=== PATIENT | female | born 1985 | race Caucasian/White ===

== ENCOUNTER 2020-07-04 01:06 | Emergency (ER) | payer BC, MEDICAID ==
[~2020-07-04] VITALS: Ht 165.1 cm; Wt 144.2 kg
[2020-07-04 01:58] LABS: BILIRUBIN,URINE NEGATIVE (NEGATIVE); CLARITY,URINE CLEAR; COLOR,URINE YELLOW; GLUCOSE, URINE (UA) NEGATIVE (NEGATIVE); KETONES,URINE NEGATIVE (NEGATIVE); LEUKOCYTE ESTERASE ,URINE TRACE (NEGATIVE); NITRITE,URINE NEGATIVE (NEGATIVE); PH,URINE 5.5 (5-9); PROTEIN,URINE NEGATIVE (NEGATIVE)
--- NOTE | 2020-07-04 02:07 | ED GI ---
General Chief Complaint: Abdominal/GI Problems Stated Complaint: POSS KIDNEY STONE Source of Information: Patient History of Present Illness Date Seen by Provider: Jul 04, 2020 Time Seen by Provider: 01:41 Initial Comments PT ARRIVES VIA POV WITH FEMALE S.O. ( WHO LATER DECIDED TO ALSO CHECK INTO ER FOR UNRELATED PROBLEM ) C/O BILATERAL LOWER BACK PAIN ON MONDAY NIGHT C/O VERY PAINFUL URINATION, URGENCY, SMALL AMOUNTS SINCE YESTERDAY C/O NAUSEA/VOMITING/DIARRHEA TODAY--UNKNOWN NUMBER OF EPISODES C/O PAIN / CRAMPING IN LOWER ABDOMEN/PELVIC AREA NO FEVER STATES SHE HAS NOT TAKEN ANYTHING FOR SYMPTOMS PT WANTING PAIN MEDICATION AND NAUSEA MEDICATION SOON SHE ARRIVES STATES SHE HAS HAD KIDNEY STONES BEFORE--PASSED THEM ON HER OWN. STATES THIS DOES NOT FEEL THE SAME KIDNEY STONES PT IS INSULIN DEPENDENT DIABETIC--STATES BLOOD SUGAR WAS IN 120'S THIS MORNING, HAS NOT CHECKED IT SINCE THEN JUST MOVED HERE LAST NIGHT WITH HER FEMALE S.O. FROM [place]--STAYING WITH FRIENDS HERE. PCP: [facility]HAS NEW PT APPOINTMENT THIS MONTH Allergies and Home Medications Allergies Coded Allergies: Sulfa (Sulfonamide Antibiotics) (Verified Allergy, Unknown, 07/04/20) ciprofloxacin (Verified Allergy, Unknown, 07/04/20) divalproex sodium (Verified Allergy, Unknown, 07/04/20) dulaglutide (Verified Allergy, Unknown, 07/04/20) elagolix (Verified Allergy, Unknown, 07/04/20) ibuprofen (Verified Allergy, Unknown, 07/04/20) ketorolac (Verified Allergy, Unknown, 07/04/20) progesterone (Verified Allergy, Unknown, 07/04/20) Home Medications Cefdinir 300 Mg Capsule, 300 MG PO BID Prescribed by: NETTE HESTER on 07/04/20408 Ondansetron 8 Mg Tab.rapdis, 8 MG PO Q6H Prescribed by: NETTE HESTER on 07/04/20408 Phenazopyridine HCl 200 Mg Tablet, 1 TAB PO TID Prescribed by: NETTE HESTER on 07/04/20408 Patient Home Medication List Home Medication List Reviewed: Yes Review of Systems Review of Systems Constitutional: no symptoms reported; No chills, No diaphoresis, No dizziness, No fever Respiratory: No Symptoms Reported Cardiovascular: No Symptoms Reported Gastrointestinal: See HPI, Abdominal Pain, Diarrhea, Nausea, Vomiting Past Uayohsz-Olbhrm-Mjruuv Hx Past Med/Social Hx: Reviewed and Corrections made Patient Social History Alcohol Use: Denies Use Drug of Choice: DENIES Smoking Status: Never a Smoker Past Medical History Surgeries: Yes ("TOO MANY TO LIST" PER PT) Respiratory: Yes (COVID-19 INFECTION 11/2019--NO HOSPITALIZATION) Cardiac: Yes High Cholesterol, Hypertension Neurological: Yes Headaches /Migraines Reproductive Disorders: Yes Female Reproductive Disorders: Endometriosis, Ovarian Cyst, Polycystic Ovarian Dis Genitourinary: Yes Bladder Infection, Kidney Stones Gastrointestinal: Yes (GASTROPARESIS; CELIAC DISEASE) Gastroesophageal Reflux Musculoskeletal: Yes Chronic Back Pain Endocrine: Yes (MORBID OBESITY) Diabetes, Insulin dep HEENT: No Cancer: No Psychosocial: Yes Anxiety, PTSD, Bipolar, Depression Integumentary: No Blood Disorders: No Physical Exam Vital Signs Vital Signs - First Documented 07/04/20 01:30 Temp 36.4 Pulse 106 Resp 18 B/P (MAP) 124/77 (93) Pulse Ox 98 O2 Delivery Room Air Capillary Refill : Height/Weight/BMI Height: '" Weight: lbs. oz. kg; BMI Method: General Appearance: no apparent distress, obese (MORBIDLY), other (DOES NOT APPEAR TO BE IN ANY DISCOMFORT OR DISTRESS. 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, no motor/sensory deficits, alert, normal mood/affect, oriented x 3 Skin: normal color, warm/dry Progress/Results/Core Measures Results/Orders Lab Results Laboratory Tests Test 07/04/20 01:30 07/04/20 01:55 07/04/20 02:10 Range/Units Urine Color YELLOW Urine Clarity CLEAR Urine pH 5.5 5-9 Urine Specific [place] >=1.030 1.016-1.022 Urine Protein NEGATIVE NEGATIVE Urine Glucose (UA) NEGATIVE NEGATIVE Urine Ketones NEGATIVE NEGATIVE Urine Nitrite NEGATIVE NEGATIVE Urine Bilirubin NEGATIVE NEGATIVE Urine Urobilinogen 0.2 < = 1.0 MG/DL Urine Leukocyte Esterase TRACE H NEGATIVE Urine RBC (Auto) NEGATIVE NEGATIVE Urine RBC 2-5 H /HPF Urine WBC 5-10 H /HPF Urine Squamous Epithelial Cells 5-10 /HPF Urine Crystals NONE /LPF Urine Bacteria LARGE H /HPF Urine Casts NONE /LPF Urine Mucus LARGE H /LPF Urine Culture Indicated YES Urine Opiates Screen POSITIVE H NEGATIVE Urine Oxycodone Screen POSITIVE H NEGATIVE Urine Methadone Screen NEGATIVE NEGATIVE Urine Propoxyphene Screen NEGATIVE NEGATIVE Urine Barbiturates Screen NEGATIVE NEGATIVE Ur Tricyclic Antidepressants Screen POSITIVE H NEGATIVE Urine Phencyclidine Screen NEGATIVE NEGATIVE Urine Amphetamines Screen NEGATIVE NEGATIVE Urine Methamphetamines Screen NEGATIVE NEGATIVE Urine Benzodiazepines Screen NEGATIVE NEGATIVE Urine Cocaine Screen NEGATIVE NEGATIVE Urine Cannabinoids Screen NEGATIVE NEGATIVE White Blood Count 11.2 H 4.3-11.0 10^3/uL Red Blood Count 5.18 H 3.80-5.11 10^6/uL Hemoglobin 13.6 11.5-16.0 g/dL Hematocrit 42 35-52 % Mean Corpuscular Volume 82 80-99 fL Mean Corpuscular Hemoglobin 26 25-34 pg Mean Corpuscular Hemoglobin Concent 32 32-36 g/dL Red Cell Distribution Width 15.0 H 10.0-14.5 % Platelet Count 305 130-400 10^3/uL Mean Platelet Volume 11.2 9.0-12.2 fL Immature Granulocyte % (Auto) 0 % Neutrophils (%) (Auto) 60 42-75 % Lymphocytes (%) (Auto) 31 12-44 % Monocytes (%) (Auto) 6 0-12 % Eosinophils (%) (Auto) 1 0-10 % Basophils (%) (Auto) 1 0-10 % Neutrophils # (Auto) 6.7 1.8-7.8 10^3/uL Lymphocytes # (Auto) 3.5 1.0-4.0 10^3/uL Monocytes # (Auto) 0.7 0.0-1.0 10^3/uL Eosinophils # (Auto) 0.2 0.0-0.3 10^3/uL Basophils # (Auto) 0.1 0.0-0.1 10^3/uL Immature Granulocyte # (Auto) 0.1 0.0-0.1 10^3/uL Sodium Level 137 135-145 MMOL/L Potassium Level 3.3 L 3.6-5.0 MMOL/L Chloride Level 100 98-107 MMOL/L Carbon Dioxide Level 23 21-32 MMOL/L Anion Gap 14 5-14 MMOL/L Blood Urea Nitrogen 17 7-18 MG/DL Creatinine 0.97 0.60-1.30 MG/DL Estimat Glomerular Filtration Rate > 60 BUN/Creatinine Ratio 18 Glucose Level 163 H 70-105 MG/DL Calcium Level 9.1 8.5-10.1 MG/DL Corrected Calcium 9.3 8.5-10.1 MG/DL Total Bilirubin 0.3 0.1-1.0 MG/DL Aspartate Amino Transf (AST/SGOT) 17 5-34 U/L Alanine Aminotransferase (ALT/SGPT) 44 0-55 U/L Alkaline Phosphatase 151 H 40-136 U/L Total Protein 7.4 6.4-8.2 GM/DL Albumin 3.7 3.2-4.5 GM/DL Coronavirus 2019 ([facility]) Negative Negative My Orders Orders - NETTE HESTER DO Ct Abd/Pelvis Wo(Kidney Stone) (07/04/20 01:50) Urine Bedside (07/04/20 01:50) Cbc With Automated Diff (07/04/20 01:50) Comprehensive Metabolic Panel (07/04/20 01:50) Drug Screen Stat (Urine) (07/04/20 01:50) Ua Culture If Indicated (07/04/20 01:50) Abdomen/Kub 1view (07/04/20 01:50) Covid 19 Inhouse Test (07/04/20 02:07) Urine Culture (07/04/20 01:30) Ondansetron Injection (Zofran Injectio (07/04/20 02:15) Ed Iv/Invasive Line Start (07/04/20 02:12) Ns Iv 1000 Ml (Sodium Chloride 0.9%) (07/04/20 02:15) Ceftriaxone For Iv Use (Rocephin For I (07/04/20 02:30) Medications Given in ED Current Medications Medications Dose Ordered Sig/Christel Route Start Time Stop Time Status Last Admin Dose Admin Ceftriaxone Sodium 1000 mg/ Sterile Water 10 ml @ 200 mls/hr ONCE ONCE IV 07/04/20 02:30 07/04/20 02:32 DC 07/04/20 02:21 200 MLS/HR Ondansetron HCl 8 mg ONCE ONCE IVP 07/04/20 02:15 07/04/20 02:16 DC 07/04/20 02:21 8 MG Vital Signs/I&O 07/04/20 07/04/20 01:30 04:15 Temp 36.4 36.4 Pulse 106 89 Resp 18 17 B/P (MAP) 124/77 (93) 108/75 (93) Pulse Ox 98 98 O2 Delivery Room Air Room Air Progress Progress Note : Progress Note GIVEN IV FLUIDS AND ZOFRAN NO COMPLAINTS FOR REMAINDER OF ER STAY NO VOMITING OR DIARRHEA DURING ER STAY NO URINARY FREQUENCY DURING ER STAY SLEPT ON RETURN FROM CT SCAN Diagnostic Imaging Comments ABDOMEN XRAYS--NO ACUTE PROCESS, CALCIFICATIONS IN PELVIS--PENDING RADIOLOGIST REVIEW CT ABDOMEN/PELVIS--NO ACUTE PROCESS, PER [facility] VIA FAX AT 0406 Reviewed: Reviewed by Me Departure Impression Primary Impression: Urinary tract infection Additional Impression: IDDM (insulin dependent diabetes mellitus) Disposition: HOME, SELF-CARE Condition: Stable Departure-Patient Inst. Referrals: NO,LOCAL PHYSICIAN (PCP/Family) Primary Care Physician Patient Instructions: Diabetes and Infections, Urinary Tract Infection, Adult (DC) Add. Discharge Instructions: CONTINUE YOUR CURRENT MEDICATIONS PRESCRIBED LOTS OF CLEAR LIQUIDS FOLLOW UP WITH DRKiara OF CHOICE IN 3-4 DAYS FOR FURTHER CARE, RETURN TO ER IF WORSE All discharge instructions reviewed with patient and/or family. Voiced understanding. Scripts Ondansetron (Ondansetron Odt) 8 Mg Tab.rapdis 8 MG PO Q6H, #10 TAB Prov: MIR,NETTE K DO 07/04/20 Phenazopyridine HCl (Pyridium) 200 Mg Tablet 1 TAB PO TID, #15 TAB Prov: MIR,NETTE K DO 07/04/20 Cefdinir (Cefdinir) 300 Mg Capsule 300 MG PO BID, #20 CAP Prov: MIR,NETTE K DO 07/04/20 MIR,NETTE K DO Jul 04, 2020 02:07
[2020-07-04 02:12] LABS: BASOPHILS # (AUTO) 0.1 10^3/uL (0.0-0.1); BASOPHILS % (AUTO) 1 % (0-10); EOSINOPHILS # (AUTO) 0.2 10^3/uL (0.0-0.3); EOSINOPHILS % (AUTO) 1 % (0-10); HEMATOCRIT 42 % (35-52); HEMOGLOBIN 13.6 g/dL (11.5-16.0); LYMPHOCYTES # (AUTO) 3.5 10^3/uL (1.0-4.0); LYMPHOCYTES % (AUTO) 31 % (12-44); MEAN CORPUSCULAR HEMOGLOBIN 26 pg (25-34); MEAN CORPUSCULAR HGB CONC 32 g/dL (32-36); MEAN CORPUSCULAR VOLUME 82 fL (80-99); MEAN PLATELET VOLUME 11.2 fL (9.0-12.2); MONOCYTES # (AUTO) 0.7 10^3/uL (0.0-1.0); MONOCYTES % (AUTO) 6 % (0-12); NEUTROPHILS # (AUTO) 6.7 10^3/uL (1.8-7.8); NEUTROPHILS % (AUTO) 60 % (42-75); PLATELET COUNT 305 10^3/uL (130-400); WHITE BLOOD COUNT 11.2 10^3/uL (4.3-11.0)
[2020-07-04 02:13] LABS: BACTERIA,URINE LARGE /HPF
[2020-07-04] MEDS ORDERED: ONDANSETRON 4 MG/2 ML (SDV) Z0FRAN IVP ONE (02:15)
[2020-07-04] MEDS ORDERED: NS IV 1000 ML 1,000 ML IV SCH (02:15)
[2020-07-04 02:23] LABS: AMPHETAMINE SCREEN, URINE NEGATIVE (NEGATIVE); BARBITURATE SCREEN URINE NEGATIVE (NEGATIVE); BENZODIAZEPINES SCREEN URINE NEGATIVE (NEGATIVE); CANNABINOID SCREEN, URINE NEGATIVE (NEGATIVE); COCAINE SCREEN URINE NEGATIVE (NEGATIVE); METHADONE STAT NEGATIVE (NEGATIVE); METHAMPHETAMINE SCREEN URINE S NEGATIVE (NEGATIVE); OPIATE SCREEN URINE POSITIVE (NEGATIVE); OXYCODONE STAT POSITIVE (NEGATIVE); PROPOXYPHENE STAT NEGATIVE (NEGATIVE); TRICYCLIC ANTIDEPRESSANTS SCRE POSITIVE (NEGATIVE)
[2020-07-04 02:30] LABS: ALANINE AMINOTRANSFERASE 44 U/L (0-55); ALBUMIN 3.7 GM/DL (3.2-4.5); ALKALINE PHOSPHATASE 151 U/L (40-136); BILIRUBIN,TOTAL 0.3 MG/DL (0.1-1.0); BUN/CREATININE RATIO 18; CALCIUM 9.1 MG/DL (8.5-10.1); CARBON DIOXIDE 23 MMOL/L (21-32); CHLORIDE 100 MMOL/L (98-107); CREATININE SERUM 0.97 MG/DL (0.60-1.30); GFR ESTIMATED > 60; GLUCOSE 163 MG/DL (70-105); POTASSIUM 3.3 MMOL/L (3.6-5.0); SODIUM 137 MMOL/L (135-145); TOTAL PROTEIN 7.4 GM/DL (6.4-8.2)
[2020-07-04] MEDS ORDERED: cefTRIAXone FOR IV USE 1,000 MG in WATER (STERILE) FOR INJECTION 10 ML IV ONE (02:30)
[2020-07-04] MEDS ORDERED: PHEN-640 PO (04:09)
[2020-07-04] MEDS ORDERED: CEFD300C3 PO (04:09)
[2020-07-04] MEDS ORDERED: ONDA8TAB13 PO (04:09)
[2020-07-04 04:15] VITALS: BP 108/75
--- NOTE | 2020-07-04 07:05 | Diagnostic Imaging Report ---
EXAMINATION: CT Abdomen Pelvis without contrast. TECHNIQUE: Multiple contiguous axial images were obtained through the abdomen and pelvis without the use of intravenous contrast. All CT scans use one or more of the following dose optimizing techniques: automated exposure control, MA and/or KvP adjustment based on a patient size and exam type, or iterative reconstruction. HISTORY: Flank pain COMPARISON: None available. FINDINGS: Limited views of the lower thorax are unremarkable. The liver is normal without focal lesion. There is no biliary ductal dilation. The gallbladder is surgically absent. Pancreas is normal. Spleen is normal. Adrenal glands are normal. The kidneys are normal. There is no hydronephrosis. Urinary bladder is normal. There are several phleboliths in the pelvis including one immediately adjacent to the left ureter. No ureteral stones are seen. Visualized bowel is normal in caliber without obstruction or inflammation. No free fluid or air. No abdominal or pelvic lymphadenopathy. Aorta is normal in caliber without aneurysm. There are no suspicious osseus lesions. IMPRESSION: 1. No acute abnormality in the abdomen or pelvis. There is no significant disagreement with the preliminary report. Dictated by: Dictated on workstation # [id number]
--- NOTE | 2020-07-04 07:47 | Diagnostic Imaging Report ---
HISTORY: Abdominal pain COMPARISON: CT from the same day FINDINGS: Frontal view of the abdomen demonstrates no bowel distention or large collection of free air. Cholecystectomy clips are noted. There is a small amount of stool in the right colon. Phleboliths are seen at the pelvis. IMPRESSION: 1. No bowel obstruction or large collection of free air. Dictated by: Dictated on workstation # [id number]
== END 2020-07-04 04:15 | disposition home or self-care (01) ==
LOC: ER 01:11
DX: N39.0 Urinary tract infection, site not specified (principal); E11.9 Type 2 diabetes mellitus without complications; R60.9 Edema, unspecified; I10 Essential (primary) hypertension; E66.01 Morbid (severe) obesity due to excess calories; Z79.4 Long term (current) use of insulin; Z20.822 Contact with and (suspected) exposure to COVID-19; Z88.1 Allergy status to other antibiotic agents; Z88.2 Allergy status to sulfonamides; Z88.6 Allergy status to analgesic agent; Z88.8 Allergy status to other drugs, medicaments and biological substances
CPT/HCPCS: 74018; 74176; 80053; 80306; 81000; 84703; 85025; 87077; 87088; 87186; 99284; U0002; 36415; 87635

== ENCOUNTER 2020-07-11 11:54 | Emergency (ER) | payer MEDICAID ==
[~2020-07-11] VITALS: Ht 165 cm; Wt 144.8 kg
[~2020-07-11 11:54] MED LIST: CEFD300C3 PO; ONDA8TAB13 PO; PHEN-640 PO
[2020-07-11] MEDS ORDERED: MILN12.5 PO (12:39)
[2020-07-11] MEDS ORDERED: AMT10T PO (12:39)
[2020-07-11] MEDS ORDERED: RIME75TA PO (12:39)
[2020-07-11] MEDS ORDERED: ESCI5TAB PO (12:39)
[2020-07-11] MEDS ORDERED: PREG25CA PO (12:39)
[2020-07-11] MEDS ORDERED: BREX0.25 PO (12:39)
[2020-07-11] MEDS ORDERED: DULO20CA PO (12:39)
[2020-07-11] MEDS ORDERED: INSU100V16 SQ (12:39)
[2020-07-11] MEDS ORDERED: ATOR10TA66 PO (12:39)
[2020-07-11] MEDS ORDERED: HYDR12.56 PO (12:39)
[2020-07-11] MEDS ORDERED: GLIP5TAB13 PO (12:39)
[2020-07-11] MEDS ORDERED: INSU100V5 SQ (12:39)
[2020-07-11] MEDS ORDERED: LISI10TA25 PO (12:39)
[2020-07-11] MEDS ORDERED: TIZA4CAP8 PO (12:39)
[2020-07-11] MEDS ORDERED: OXYC1TAB12 PO (12:39)
[2020-07-11] MEDS ORDERED: CLON0.5T PO (12:39)
[2020-07-11] MEDS ORDERED: SUMA6KIT SQ (12:39)
[2020-07-11] MEDS ORDERED: TPR25T PO (12:39)
[2020-07-11 12:48] LABS: BILIRUBIN,URINE NEGATIVE (NEGATIVE); CLARITY,URINE CLEAR; COLOR,URINE YELLOW; GLUCOSE, URINE (UA) NEGATIVE (NEGATIVE); KETONES,URINE NEGATIVE (NEGATIVE); LEUKOCYTE ESTERASE ,URINE NEGATIVE (NEGATIVE); NITRITE,URINE NEGATIVE (NEGATIVE); PROTEIN,URINE NEGATIVE (NEGATIVE)
--- NOTE | 2020-07-11 12:55 | ED Abdominal Pain ---
General Chief Complaint: Abdominal/GI Problems Stated Complaint: R SIDE ABD PAIN Nursing Triage Note: PATIENT AMBULATORY TO FT3 WITH FRIEND THAT HAD BEEN SEEN EARLIER IN ER. PATIENT IS C/O RIGHT LOWER QUADRANT ABDOMINAL PAIN SINCE YESTERDAY AND ALSO MIGRAINE HEADACHES X 2 DAYS. PT STATES SHE JUST MOVED FROM [place]. Sepsis Screen: No Definite Risk Source of Information: Patient Exam Limitations: No Limitations History of Present Illness Date Seen by Provider: Jul 11, 2020 Time Seen by Provider: 12:53 Initial Comments To ER with significant other with reports of right lower quadrant abdominal pain for a few days. She states that she has endometriosis on her appendix and she can never tell if this is appendicitis or endometriosis. Her significant other was here earlier and was discharged, patient then decided to check in and be seen. She states that Toradol causes her to have seizures, NSAIDs cause her to have bleeding ulcers. She has Percocet on her home medication list as well as Klonopin in addition to multiple others. Timing/Duration: 2-3 Days Severity/Quality: Moderate Location: RLQ Radiation: No Radiation Activities at Onset: None Associated Symptoms: Nausea/Vomiting Allergies and Home Medications Allergies Coded Allergies: Sulfa (Sulfonamide Antibiotics) (Verified Allergy, Unknown, 07/04/20) ciprofloxacin (Verified Allergy, Unknown, 07/04/20) divalproex sodium (Verified Allergy, Unknown, 07/04/20) dulaglutide (Verified Allergy, Unknown, 07/04/20) elagolix (Verified Allergy, Unknown, 07/04/20) ibuprofen (Verified Allergy, Unknown, 07/04/20) ketorolac (Verified Allergy, Unknown, 07/04/20) progesterone (Verified Allergy, Unknown, 07/04/20) Home Medications Atorvastatin Calcium 10 Mg Tablet, 10 MG PO HS, (Reported) Cefdinir 300 Mg Capsule, 300 MG PO BID Prescribed by: NETTE HESTER on 07/04/20408 Insulin Aspart 100 Unit/1 Ml Susp, 15 UNIT SQ AC, (Reported) Insulin Determir 1,000 Units/10 Ml Soln, 50 UNITS SQ HS, (Reported) Lisinopril 10 Mg Tablet, 10 MG PO DAILY, (Reported) Ondansetron 8 Mg Tab.rapdis, 8 MG PO Q6H Prescribed by: NETTE HESTER on 07/04/20408 Oxycodone HCl/Acetaminophen 1 Each Tablet, 1 TAB PO Q8H PRN for PAIN-MODERATE, (Reported) Phenazopyridine HCl 200 Mg Tablet, 1 TAB PO TID Prescribed by: NETTE HESTER on 07/04/20 0409 Promethazine HCl 25 Mg Tablet, 25 MG PO TID PRN for NAUSEA/VOMITING Prescribed by: GEOVANI DURAN on 07/11/20 1333 Patient Home Medication List Home Medication List Reviewed: Yes Review of Systems Review of Systems Constitutional: see HPI EENTM: No Symptoms Reported Respiratory: No Symptoms Reported Cardiovascular: No Symptoms Reported Gastrointestinal: See HPI, Abdominal Pain, Nausea Genitourinary: No Symptoms Reported Musculoskeletal: no symptoms reported Skin: no symptoms reported Psychiatric/Neurological: No Symptoms Reported Endocrine: No Symptoms Reported Hematologic/Lymphatic: No Symptoms Reported Past Slshzqu-Elsynm-Irvcve Hx Patient Social History Alcohol Use: Denies Use Drug of Choice: DENIES Smoking Status: Never a Smoker 2nd Hand Smoke Exposure: No Recent Infectious Disease Expo: No Recent Hopitalizations: No Immunizations Up To Date Date of Influenza Vaccine: Jan 21, 2020 Seasonal Allergies Seasonal Allergies: No Past Medical History Surgeries: Yes (RECONSTRUCTION ON L RING FINGER, CARPAL TUNNEL, BEGNIGN TUMOR R LEG ) Gallbladder, Hysterectomy, Orthopedic, Tonsillectomy Respiratory: Yes (COVID-19 INFECTION 11/2019--NO HOSPITALIZATION) Cardiac: Yes High Cholesterol, Hypertension Neurological: Yes Headaches /Migraines Reproductive Disorders: Yes Female Reproductive Disorders: Endometriosis, Ovarian Cyst, Polycystic 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 oz. kg; 53.00 BMI Method: General Appearance: WD/WN, no apparent distress, obese HEENT: PERRL/EOMI, normal ENT inspection Neck: non-tender, full range of motion Respiratory: normal breath sounds, no respiratory distress, no accessory muscle use Cardiovascular: regular rate, rhythm, no murmur Gastrointestinal: normal bowel sounds, soft, tenderness Neurologic/Psychiatric: alert, normal mood/affect, oriented x 3 Skin: normal color, warm/dry Progress/Results/Core Measures Results/Orders Lab Results Laboratory Tests Test 07/11/20 12:40 07/11/20 12:52 Range/Units Urine Color YELLOW Urine Clarity CLEAR Urine pH 7.0 5-9 Urine Specific [place] 1.020 1.016-1.022 Urine Protein NEGATIVE NEGATIVE Urine Glucose (UA) NEGATIVE NEGATIVE Urine Ketones NEGATIVE NEGATIVE Urine Nitrite NEGATIVE NEGATIVE Urine Bilirubin NEGATIVE NEGATIVE Urine Urobilinogen 0.2 < = 1.0 MG/DL Urine Leukocyte Esterase NEGATIVE NEGATIVE Urine RBC (Auto) NEGATIVE NEGATIVE Urine RBC RARE /HPF Urine WBC 0-2 /HPF Urine Squamous Epithelial Cells 25-50 H /HPF Urine Crystals NONE /LPF Urine Bacteria FEW H /HPF Urine Casts NONE /LPF Urine Mucus NEGATIVE /LPF Urine Culture Indicated YES Urine Opiates Screen NEGATIVE NEGATIVE Urine Oxycodone Screen POSITIVE H NEGATIVE Urine Methadone Screen NEGATIVE NEGATIVE Urine Propoxyphene Screen NEGATIVE NEGATIVE Urine Barbiturates Screen NEGATIVE NEGATIVE Ur Tricyclic Antidepressants Screen POSITIVE H NEGATIVE Urine Phencyclidine Screen NEGATIVE NEGATIVE Urine Amphetamines Screen NEGATIVE NEGATIVE Urine Methamphetamines Screen NEGATIVE NEGATIVE Urine Benzodiazepines Screen NEGATIVE NEGATIVE Urine Cocaine Screen NEGATIVE NEGATIVE Urine Cannabinoids Screen NEGATIVE NEGATIVE White Blood Count 10.7 4.3-11.0 10^3/uL Red Blood Count 5.57 H 3.80-5.11 10^6/uL Hemoglobin 14.7 11.5-16.0 g/dL Hematocrit 46 35-52 % Mean Corpuscular Volume 82 80-99 fL Mean Corpuscular Hemoglobin 26 25-34 pg Mean Corpuscular Hemoglobin Concent 32 32-36 g/dL Red Cell Distribution Width 14.9 H 10.0-14.5 % Platelet Count 277 130-400 10^3/uL Mean Platelet Volume 11.3 9.0-12.2 fL Immature Granulocyte % (Auto) 0 % Neutrophils (%) (Auto) 76 H 42-75 % Lymphocytes (%) (Auto) 18 12-44 % Monocytes (%) (Auto) 4 0-12 % Eosinophils (%) (Auto) 1 0-10 % Basophils (%) (Auto) 1 0-10 % Neutrophils # (Auto) 8.1 H 1.8-7.8 10^3/uL Lymphocytes # (Auto) 1.9 1.0-4.0 10^3/uL Monocytes # (Auto) 0.4 0.0-1.0 10^3/uL Eosinophils # (Auto) 0.2 0.0-0.3 10^3/uL Basophils # (Auto) 0.1 0.0-0.1 10^3/uL Immature Granulocyte # (Auto) 0.0 0.0-0.1 10^3/uL Sodium Level 140 135-145 MMOL/L Potassium Level 3.4 L 3.6-5.0 MMOL/L Chloride Level 99 98-107 MMOL/L Carbon Dioxide Level 26 21-32 MMOL/L Anion Gap 15 H 5-14 MMOL/L Blood Urea Nitrogen 9 7-18 MG/DL Creatinine 0.82 0.60-1.30 MG/DL Estimat Glomerular Filtration Rate > 60 BUN/Creatinine Ratio 11 Glucose Level 145 H 70-105 MG/DL Calcium Level 9.4 8.5-10.1 MG/DL Corrected Calcium 9.6 8.5-10.1 MG/DL Total Bilirubin 0.4 0.1-1.0 MG/DL Aspartate Amino Transf (AST/SGOT) 26 5-34 U/L Alanine Aminotransferase (ALT/SGPT) 33 0-55 U/L Alkaline Phosphatase 140 H 40-136 U/L C-Reactive Protein High Sensitivity 3.29 H 0.00-0.50 MG/DL Total Protein 7.7 6.4-8.2 GM/DL Albumin 3.8 3.2-4.5 GM/DL My Orders Orders - GEOVANI DURAN APRN Ua Culture If Indicated (07/11/20 12:30) Drug Screen Stat (Urine) (07/11/20 12:30) Hs C Reactive Protein (07/11/20 12:30) Cbc With Automated Diff (07/11/20 12:30) Comprehensive Metabolic Panel (07/11/20 12:30) Acetaminophen Tablet (Tylenol Tablet) (07/11/20 13:00) Promethazine Tablet (Phenergan Tablet) (07/11/20 13:00) Urine Culture (07/11/20 12:40) Ct Abdomen/Pelvis Wo (07/11/20 13:27) Medications Given in ED Current Medications Medications Dose Ordered Sig/Christel Route Start Time Stop Time Status Last Admin Dose Admin Acetaminophen 1,000 mg ONCE ONCE PO 07/11/20 13:00 07/11/20 13:01 DC 07/11/20 13:00 1,000 MG Promethazine HCl 25 mg ONCE ONCE PO 07/11/20 13:00 07/11/20 13:01 DC 07/11/20 13:00 25 MG Vital Signs/I&O 07/11/20 12:20 Temp 35.9 Pulse 109 Resp 18 B/P (MAP) 137/86 (103) Pulse Ox 100 O2 Delivery Room Air Blood Pressure Mean: 103 Diagnostic Imaging Diagonstic Imaging: CT Comments NAME: YANDY BULL MED REC#: [id number] PT STATUS: REG ER : 1985 PHYSICIAN: GEOVANI DURAN APRN ADMIT DATE: 07/11/20/ER Draft Date of Exam:07/11/20 CT ABDOMEN/PELVIS WO PROCEDURE: CT abdomen and pelvis without contrast. TECHNIQUE: Multiple contiguous axial images were obtained through the abdomen and pelvis without the use of intravenous contrast. Auto Exposure Controls were utilized during the CT exam to meet ALARA standards for radiation dose reduction. INDICATION: Right lower quadrant pain. Comparison made with prior examination 07/04/2020 FINDINGS: The heart size is normal. The lung bases are clear. Liver is normal in size without focal lesions. Gallbladder is surgically absent. There is no biliary ductal dilatation. Spleen is normal. Pancreas and adrenal glands are unremarkable. Kidneys are normal in appearance. Aorta is nonaneurysmal. Bowel gas pattern is nonspecific. There is no CT evidence of appendicitis. There is no free air. There is no ascites. There are no focal inflammatory changes. Bladder is normal. There is no pelvic mass, adenopathy or free fluid. There is a small fat-containing umbilical hernia. There are mild degenerative changes in the spine. IMPRESSION: Small fat-containing umbilical hernia. No other acute abnormality in the abdomen or pelvis. Dictated on workstation # [id number] Dict: 07/11/20 1344 Trans: 07/11/20 1349 [id number] Interpreted by: CATALINA HERNANDEZ MD Electronically signed by: Departure Impression Primary Impression: Nonspecific abdominal pain Disposition: HOME, SELF-CARE Condition: Stable Departure-Patient Inst. Decision time for Depature: 13:32 Referrals: NO,LOCAL PHYSICIAN (PCP/Family) Primary Care Physician Patient Instructions: No Instuctions Given Scripts Promethazine HCl (Promethazine Tablet) 25 Mg Tablet 25 MG PO TID PRN for NAUSEA/VOMITING, #10 TAB Prov: GEOVANI DURAN APRN 07/11/20 GEOVANI DURAN APRN Jul 11, 2020 12:55
[2020-07-11 12:58] LABS: BACTERIA,URINE FEW /HPF; RBC,URINE RARE /HPF; SQUAMOUS EPITHELIAL CELL,UR 25-50 /HPF; WBC,URINE 0-2 /HPF
[2020-07-11 12:58] LABS: BASOPHILS # (AUTO) 0.1 10^3/uL (0.0-0.1); BASOPHILS % (AUTO) 1 % (0-10); EOSINOPHILS # (AUTO) 0.2 10^3/uL (0.0-0.3); EOSINOPHILS % (AUTO) 1 % (0-10); HEMATOCRIT 46 % (35-52); HEMOGLOBIN 14.7 g/dL (11.5-16.0); LYMPHOCYTES # (AUTO) 1.9 10^3/uL (1.0-4.0); LYMPHOCYTES % (AUTO) 18 % (12-44); MEAN CORPUSCULAR HEMOGLOBIN 26 pg (25-34); MEAN CORPUSCULAR HGB CONC 32 g/dL (32-36); MEAN CORPUSCULAR VOLUME 82 fL (80-99); MEAN PLATELET VOLUME 11.3 fL (9.0-12.2); MONOCYTES # (AUTO) 0.4 10^3/uL (0.0-1.0); MONOCYTES % (AUTO) 4 % (0-12); NEUTROPHILS # (AUTO) 8.1 10^3/uL (1.8-7.8); NEUTROPHILS % (AUTO) 76 % (42-75); PLATELET COUNT 277 10^3/uL (130-400); WHITE BLOOD COUNT 10.7 10^3/uL (4.3-11.0)
[2020-07-11 13:00] LABS: AMPHETAMINE SCREEN, URINE NEGATIVE (NEGATIVE); BARBITURATE SCREEN URINE NEGATIVE (NEGATIVE); BENZODIAZEPINES SCREEN URINE NEGATIVE (NEGATIVE); CANNABINOID SCREEN, URINE NEGATIVE (NEGATIVE); COCAINE SCREEN URINE NEGATIVE (NEGATIVE); METHADONE STAT NEGATIVE (NEGATIVE); METHAMPHETAMINE SCREEN URINE S NEGATIVE (NEGATIVE); OPIATE SCREEN URINE NEGATIVE (NEGATIVE); OXYCODONE STAT POSITIVE (NEGATIVE); PROPOXYPHENE STAT NEGATIVE (NEGATIVE); TRICYCLIC ANTIDEPRESSANTS SCRE POSITIVE (NEGATIVE)
[2020-07-11] MEDS ORDERED: ACETAMINOPHEN 500 MG TAB (TYLENOL) PO ONE (13:00)
[2020-07-11] MEDS ORDERED: PROMETHAZINE 25 MG (PHENERGAN) TAB PO ONE (13:00)
[2020-07-11 13:18] LABS: ALBUMIN 3.8 GM/DL (3.2-4.5); CHLORIDE 99 MMOL/L (98-107); POTASSIUM 3.4 MMOL/L (3.6-5.0); SODIUM 140 MMOL/L (135-145)
[2020-07-11 13:20] LABS: CALCIUM 9.4 MG/DL (8.5-10.1)
[2020-07-11 13:21] LABS: GLUCOSE 145 MG/DL (70-105); TOTAL PROTEIN 7.7 GM/DL (6.4-8.2)
[2020-07-11 13:22] LABS: CARBON DIOXIDE 26 MMOL/L (21-32)
[2020-07-11 13:23] LABS: BILIRUBIN,TOTAL 0.4 MG/DL (0.1-1.0)
[2020-07-11 13:24] LABS: ALKALINE PHOSPHATASE 140 U/L (40-136)
[2020-07-11 13:25] LABS: CREATININE SERUM 0.82 MG/DL (0.60-1.30); GFR ESTIMATED > 60
[2020-07-11 13:26] LABS: BUN/CREATININE RATIO 11
[2020-07-11 13:27] LABS: ALANINE AMINOTRANSFERASE 33 U/L (0-55)
[2020-07-11] MEDS ORDERED: PROM25TA14 PO (13:33)
--- NOTE | 2020-07-11 13:49 | Diagnostic Imaging Report ---
PROCEDURE: CT abdomen and pelvis without contrast. TECHNIQUE: Multiple contiguous axial images were obtained through the abdomen and pelvis without the use of intravenous contrast. Auto Exposure Controls were utilized during the CT exam to meet ALARA standards for radiation dose reduction. INDICATION: Right lower quadrant pain. Comparison made with prior examination 07/04/2020 FINDINGS: The heart size is normal. The lung bases are clear. Liver is normal in size without focal lesions. Gallbladder is surgically absent. There is no biliary ductal dilatation. Spleen is normal. Pancreas and adrenal glands are unremarkable. Kidneys are normal in appearance. Aorta is nonaneurysmal. Bowel gas pattern is nonspecific. There is no CT evidence of appendicitis. There is no free air. There is no ascites. There are no focal inflammatory changes. Bladder is normal. There is no pelvic mass, adenopathy or free fluid. There is a small fat-containing umbilical hernia. There are mild degenerative changes in the spine. IMPRESSION: Small fat-containing umbilical hernia. No other acute abnormality in the abdomen or pelvis. Dictated by: Dictated on workstation # [id number]
[2020-07-11 14:04] VITALS: BP 120/72
== END 2020-07-11 14:07 | disposition home or self-care (01) ==
LOC: EDUNIT# 11:54 → ER 11:54
DX: R10.31 Right lower quadrant pain (principal); I10 Essential (primary) hypertension; E11.9 Type 2 diabetes mellitus without complications; E78.00 Pure hypercholesterolemia, unspecified; G89.29 Other chronic pain; M54.9 Dorsalgia, unspecified; G43.909 Migraine, unspecified, not intractable, without status migrainosus; Z88.2 Allergy status to sulfonamides; Z88.1 Allergy status to other antibiotic agents; Z88.8 Allergy status to other drugs, medicaments and biological substances; Z88.6 Allergy status to analgesic agent; Z79.4 Long term (current) use of insulin; Z86.16 Personal history of COVID-19; Z87.442 Personal history of urinary calculi; Z79.891 Long term (current) use of opiate analgesic
CPT/HCPCS: 36415; 74176; 80053; 80306; 81000; 85025; 86141; 87088

== ENCOUNTER 2020-07-19 21:00 | Emergency (ER) | payer MEDICAID ==
[~2020-07-19] VITALS: Ht 165 cm; Wt 149.0 kg
[~2020-07-19 21:00] MED LIST changes: +AMT10T PO; +ATOR10TA66 PO; +BREX0.25 PO; +CLON0.5T PO; +DULO20CA PO; +ESCI5TAB PO; +GLIP5TAB13 PO; +HYDR12.56 PO; +INSU100V16 SQ; +INSU100V5 SQ; +LISI10TA25 PO; +MILN12.5 PO; +OXYC1TAB12 PO; +PREG25CA PO; +PROM25TA14 PO; +RIME75TA PO; +SUMA6KIT SQ; +TIZA4CAP8 PO; +TPR25T PO
--- NOTE | 2020-07-19 22:03 | ED Headache ---
General Chief Complaint: Head/Cervical Problems Stated Complaint: SEIZURES Nursing Triage Note: Pt here with what she describes as a migraine and seizure activity x 2 today; pt states she takes Topamax for her seizures. Nursing Sepsis Screen: No Definite Risk History of Present Illness Date Seen by Provider: Jul 19, 2020 Time Seen by Provider: 21:45 Initial Comments Patient is a 35-year-old who presents to the emergency department tonight with a chief complaint of "seizures". Patient states that she has a history of the seizures when she has migraines. Patient states that she is had a migraine all day long and states that normally she has these in her sleep. She states that she takes Topamax for her seizures. She does not currently have a doctor she [place] and has an appointment with [facility] on 28 July. Patient's been out of her medications for diabetes since 03 July. She is normally on an oral hypoglycemic agent as well as insulin. Patient denies any recent illnesses. States this migraine is typical for her. She does have photosensitivity. Descriptor by the family member at the bedside is that the patient jerks in her hands. She was noted to have a se izure where her head went back on her eyelids fluttered in the waiting room and this was also witnessed by her nurse, Chanel. Lasted only moments. No postictal state is reported. Patient states that she typically has seizures about twice a month with her migraines. All other review of systems reviewed and negative except as stated above. Timing/Duration: 24 hours Severity/Quality: severe ("9") Location: global Prior Headaches/Recent Trauma: frequent headaches Modifying Factors: worse with exposure to light Allergies and Home Medications Allergies Coded Allergies: Sulfa (Sulfonamide Antibiotics) (Verified Allergy, Unknown, 07/04/20) ciprofloxacin (Verified Allergy, Unknown, 07/04/20) divalproex sodium (Verified Allergy, Unknown, 07/04/20) dulaglutide (Verified Allergy, Unknown, 07/04/20) elagolix (Verified Allergy, Unknown, 07/04/20) ibuprofen (Verified Allergy, Unknown, 07/04/20) ketorolac (Verified Allergy, Unknown, 07/04/20) progesterone (Verified Allergy, Unknown, 07/04/20) Home Medications Atorvastatin Calcium 10 Mg Tablet, 10 MG PO HS, (Reported) Cefdinir 300 Mg Capsule, 300 MG PO BID Prescribed by: NETTE HESTER on 07/04/20 040 Insulin Aspart 100 Unit/1 Ml Susp, 15 UNIT SQ AC, (Reported) Insulin Determir 1,000 Units/10 Ml Soln, 50 UNITS SQ HS, (Reported) Lisinopril 10 Mg Tablet, 10 MG PO DAILY, (Reported) Ondansetron 8 Mg Tab.rapdis, 8 MG PO Q6H Prescribed by: NETTE HESTER on 07/04/20 040 Oxycodone HCl/Acetaminophen 1 Each Tablet, 1 TAB PO Q8H PRN for PAIN-MODERATE, (Reported) Phenazopyridine HCl 200 Mg Tablet, 1 TAB PO TID Prescribed by: NETTE HESTER on 07/04/20408 Promethazine HCl 25 Mg Tablet, 25 MG PO TID PRN for NAUSEA/VOMITING Prescribed by: GEOVANI DURAN on 07/11/20 1333 Patient Home Medication List Home Medication List Reviewed: Yes Review of Systems Review of Systems Constitutional: see HPI Eyes: Photophobia Ears, Nose, Mouth, Throat: no symptoms reported Respiratory: no symptoms reported Cardiovascular: no symptoms reported Gastrointestinal: no symptoms reported Genitourinary: no symptoms reported Musculoskeletal: no symptoms reported Skin: no symptoms reported Psychiatric/Neurological: Seizure All Other Systems Reviewed Negative Unless Noted: Yes Past Ywrzcza-Hevejv-Tkkxec Hx Patient Social History Alcohol Use: Occasionally Uses Drug of Choice: DENIES Smoking Status: Former Smoker 2nd Hand Smoke Exposure: No Recent Infectious Disease Expo: No Recent Hopitalizations: No Immunizations Up To Date Date of Influenza Vaccine: Jan 21, 2020 Seasonal Allergies Seasonal Allergies: No Past Medical History Surgeries: Yes (RECONSTRUCTION ON L RING FINGER, CARPAL TUNNEL, BEGNIGN TUMOR R LEG ) Gallbladder, Hysterectomy, Orthopedic, Tonsillectomy Respiratory: Yes (COVID-19 INFECTION 11/2019--NO HOSPITALIZATION) Cardiac: Yes High Cholesterol, Hypertension Neurological: Yes Headaches /Migraines Reproductive Disorders: Yes Female Reproductive Disorders: Endometriosis, Ovarian Cyst, Polycystic 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 oz. kg; 54.00 BMI Method: General Appearance: WD/WN, no apparent distress HEENT: PERRL/EOMI, normal ENT inspection Neck: full range of motion Cardiovascular: regular rate, rhythm Respiratory: normal breath sounds, no respiratory distress, no accessory muscle use Gastrointestinal: non tender, soft Back: normal inspection Extremities: normal inspection, no pedal edema, no calf tenderness Psychiatric: alert, oriented x 3 Crainal Nerves: normal hearing, normal speech, PERRL; No abnormal eye position, No abnormal speech Motor/Sensory: no motor deficit, no sensory deficit Skin: normal color, warm/dry Progress/Results/Core Measures Results/Orders Lab Results Laboratory Tests Test 07/19/20 22:40 Range/Units Glucometer 271 H 70-110 MG/DL My Orders Orders - CARMELITA RO MD Accucheck Stat ONCE (07/19/20 22:18) Diphenhydramine Injection (Benadryl Inje (07/19/20 22:30) Promethazine Injection (Phenergan Injec (07/19/20 22:30) Sumatriptan Injection (Imitrex Injection (07/19/20 22:30) Medications Given in ED Current Medications Medications Dose Ordered Sig/Christel Route Start Time Stop Time Status Last Admin Dose Admin Diphenhydramine HCl 50 mg ONCE ONCE IVP 07/19/20 22:30 07/19/20 22:31 DC 07/19/20 22:27 50 MG Promethazine HCl 25 mg ONCE ONCE IVP 07/19/20 22:30 07/19/20 22:31 DC 07/19/20 22:27 25 MG Sumatriptan Succinate 6 mg ONCE ONCE SQ 07/19/20 22:30 07/19/20 22:31 DC 07/19/20 22:34 6 MG Vital Signs/I&O 07/19/20 21:14 Temp 36.4 Pulse 105 Resp 18 B/P (MAP) 124/67 (86) Pulse Ox 98 O2 Delivery Room Air Blood Pressure Mean: 86 Progress Progress Note : Time: 23:23 Progress Note re-evalluated, feeling improved. Checked both her ears, they are clear. VS are stable. Will send her home to continue daily medications and follow up as scheduled with [facility]. Departure Impression Primary Impression: Headache Qualified Codes: R51.9 - Headache, unspecified Disposition: HOME, SELF-CARE Condition: Stable Departure-Patient Inst. Decision time for Depature: 23:24 Referrals: NO,LOCAL PHYSICIAN (PCP/Family) Primary Care Physician Patient Instructions: Headache, Adult (DC) Add. Discharge Instructions: Drink lots of fluids to stay well-hydrated. Continue your routine daily medications. Please keep your follow-up appointment as scheduled with [facility]. Return to the emergency room for worsening symptoms, seizures, fever or any other emergent complaints. CARMELITA RO MD Jul 19, 2020 22:03
[2020-07-19] MEDS ORDERED: PROMETHAZINE INJ 25 MG/ML (PHENERGAN) AMP IVP ONE (22:30)
[2020-07-19] MEDS ORDERED: SUMAtriptan 6 MG/0.5 ML (IMITREX) INJ SQ ONE (22:30)
[2020-07-19] MEDS ORDERED: diphenhydrAMINE 50 MG/ML INJ (BENADRYL) IVP ONE (22:30)
[2020-07-19 23:33] VITALS: BP 112/68
== END 2020-07-19 23:34 | disposition home or self-care (01) ==
LOC: EDUNIT# 21:00 → ER 21:04
DX: R51.9 Headache, unspecified (principal); I10 Essential (primary) hypertension; E78.00 Pure hypercholesterolemia, unspecified; G89.29 Other chronic pain; M54.9 Dorsalgia, unspecified; E11.9 Type 2 diabetes mellitus without complications; Z88.2 Allergy status to sulfonamides; Z88.1 Allergy status to other antibiotic agents; Z88.6 Allergy status to analgesic agent; Z88.8 Allergy status to other drugs, medicaments and biological substances; Z87.891 Personal history of nicotine dependence; Z79.4 Long term (current) use of insulin; Z79.891 Long term (current) use of opiate analgesic
CPT/HCPCS: 82962

== ENCOUNTER 2020-07-20 09:09 | Emergency (ER) | payer MEDICAID ==
[~2020-07-20] VITALS: Ht 165.1 cm; Wt 144.5 kg
--- NOTE | 2020-07-20 09:25 | ED Neurological Problem ---
General Stated Complaint: SEIZURES Source: patient Exam Limitations: no limitations History of Present Illness Date Seen by Provider: Jul 20, 2020 Time Seen by Provider: 09:09 Initial Comments Patient presents ER by private conveyance with her significant other in chief complaint that she had her first mode during COVID-19 vaccination 4 days ago on and since then has had a migraine with increasing seizure activity. She states she has a history of seizure activity. She recently moved down here 3 weeks ago from [place] and has plans to establish care at [facility] on the . She had a neurologist in [place]. She is had no fevers cough shortness of breath. She had some occasional nausea with her migraine and right lower quadrant abdominal discomfort. She has had her hysterectomy done. She is not having dysuria or diarrhea. She says she was then here around midnight earlier this morning with the same complaint and they gave her some medications to make her migraine better and she went home. She had a witnessed seizure in the lobby lasting about 30 seconds with no postictal phase. Patient states she is on topiramate for migraine and epilepsy as well as using Imitrex unsuccessfully for her migraine. She has not been missing any doses. She is diabetic. Allergies and Home Medications Allergies Coded Allergies: Sulfa (Sulfonamide Antibiotics) (Verified Allergy, Unknown, 07/04/20) ciprofloxacin (Verified Allergy, Unknown, 07/04/20) divalproex sodium (Verified Allergy, Unknown, 07/04/20) dulaglutide (Verified Allergy, Unknown, 07/04/20) elagolix (Verified Allergy, Unknown, 07/04/20) ibuprofen (Verified Allergy, Unknown, 07/04/20) ketorolac (Verified Allergy, Unknown, 07/04/20) progesterone (Verified Allergy, Unknown, 07/04/20) Home Medications Atorvastatin Calcium 10 Mg Tablet, 10 MG PO HS, (Reported) Cefdinir 300 Mg Capsule, 300 MG PO BID Prescribed by: NETTE HESTER on 07/04/20 0409 Insulin Aspart 100 Unit/1 Ml Susp, 15 UNIT SQ AC, (Reported) Insulin Determir 1,000 Units/10 Ml Soln, 50 UNITS SQ HS, (Reported) Lisinopril 10 Mg Tablet, 10 MG PO DAILY, (Reported) Ondansetron 8 Mg Tab.rapdis, 8 MG PO Q6H Prescribed by: NTETE HESTER on 07/04/20 0409 Oxycodone HCl/Acetaminophen 1 Each Tablet, 1 TAB PO Q8H PRN for PAIN-MODERATE, (Reported) Phenazopyridine HCl 200 Mg Tablet, 1 TAB PO TID Prescribed by: NETTE HESTER on 07/04/20408 Promethazine HCl 25 Mg Tablet, 25 MG PO TID PRN for NAUSEA/VOMITING Prescribed by: GEOVANI DURAN on 07/11/20 1333 Patient Home Medication List Home Medication List Reviewed: Yes Review of Systems Review of Systems Constitutional: No chills, No malaise Eyes: Denies Blindness, Denies Drainage Ears, Nose, Mouth, Throat: denies ear pain, denies mouth pain Respiratory: No cough, No hemoptysis Cardiovascular: No chest pain, No palpitations Gastrointestinal: No abdominal pain; nausea; No vomiting Genitourinary: No discharge, No dysuria Musculoskeletal: No back pain, No joint pain All Other Systems Reviewed Negative Unless Noted: Yes Past Rxqjegw-Pxyimr-Wiryxv Hx Patient Social History Alcohol Use: Denies Use Drug of Choice: DENIES Smoking Status: Never a Smoker 2nd Hand Smoke Exposure: No Recent Hopitalizations: No Immunizations Up To Date Date of Influenza Vaccine: Jan 21, 2020 Seasonal Allergies Seasonal Allergies: No Past Medical History Surgeries: Yes (RECONSTRUCTION ON L RING FINGER, CARPAL TUNNEL, BEGNIGN TUMOR R LEG ) Gallbladder, Hysterectomy, Orthopedic, Tonsillectomy Respiratory: Yes (COVID-19 INFECTION 11/2019--NO HOSPITALIZATION) Cardiac: Yes High Cholesterol, Hypertension Neurological: Yes Headaches /Migraines Reproductive Disorders: Yes Female Reproductive Disorders: Endometriosis, Ovarian Cyst, 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 oz. kg; 54.00 BMI Method: General Appearance: mild distress, obese HEENT: PERRL/EOMI, normal ENT inspection, TMs normal (Clear effusion bilaterally without retraction, injection, erythema or tenderness to man ipulation), pharynx normal Neck: full range of motion, normal inspection Respiratory: no accessory muscle use, other (25 to 30 breaths/min) Cardiovascular: normal peripheral pulses, tachycardia Gastrointestinal: normal bowel sounds, non tender, soft Neurologic/Psychiatric: alert, oriented x 3, other (Anxious affect) Crainal Nerves: normal hearing, normal speech, PERRL (Pupils 4 mm bilateral reactive symmetric) Motor/Sensory: no motor deficit, no sensory deficit Skin: normal color, warm/dry Progress/Results/Core Measures Results/Orders Lab Results Laboratory Tests Test 07/20/20 09:40 07/20/20 10:04 Range/Units White Blood Count 11.1 H 4.3-11.0 10^3/uL Red Blood Count 5.91 H 3.80-5.11 10^6/uL Hemoglobin 15.5 11.5-16.0 g/dL Hematocrit 49 35-52 % Mean Corpuscular Volume 83 80-99 fL Mean Corpuscular Hemoglobin 26 25-34 pg Mean Corpuscular Hemoglobin Concent 32 32-36 g/dL Red Cell Distribution Width 14.6 H 10.0-14.5 % Platelet Count 268 130-400 10^3/uL Mean Platelet Volume 11.1 9.0-12.2 fL Immature Granulocyte % (Auto) 0 % Neutrophils (%) (Auto) 74 42-75 % Lymphocytes (%) (Auto) 19 12-44 % Monocytes (%) (Auto) 5 0-12 % Eosinophils (%) (Auto) 1 0-10 % Basophils (%) (Auto) 0 0-10 % Neutrophils # (Auto) 8.2 H 1.8-7.8 10^3/uL Lymphocytes # (Auto) 2.1 1.0-4.0 10^3/uL Monocytes # (Auto) 0.5 0.0-1.0 10^3/uL Eosinophils # (Auto) 0.2 0.0-0.3 10^3/uL Basophils # (Auto) 0.0 0.0-0.1 10^3/uL Immature Granulocyte # (Auto) 0.0 0.0-0.1 10^3/uL Sodium Level 139 135-145 MMOL/L Potassium Level 3.6 3.6-5.0 MMOL/L Chloride Level 98 98-107 MMOL/L Carbon Dioxide Level 25 21-32 MMOL/L Anion Gap 16 H 5-14 MMOL/L Blood Urea Nitrogen 11 7-18 MG/DL Creatinine 0.81 0.60-1.30 MG/DL Estimat Glomerular Filtration Rate > 60 BUN/Creatinine Ratio 14 Glucose Level 177 H 70-105 MG/DL Calcium Level 9.8 8.5-10.1 MG/DL Corrected Calcium 9.7 8.5-10.1 MG/DL Total Bilirubin 0.5 0.1-1.0 MG/DL Aspartate Amino Transf (AST/SGOT) 26 5-34 U/L Alanine Aminotransferase (ALT/SGPT) 37 0-55 U/L Alkaline Phosphatase 137 H 40-136 U/L Total Protein 8.3 H 6.4-8.2 GM/DL Albumin 4.1 3.2-4.5 GM/DL Urine Color YELLOW Urine Clarity CLEAR Urine pH 6.0 5-9 Urine Specific Forbes <=1.005 1.016-1.022 Urine Protein 2+ H NEGATIVE Urine Glucose (UA) NEGATIVE NEGATIVE Urine Ketones NEGATIVE NEGATIVE Urine Nitrite NEGATIVE NEGATIVE Urine Bilirubin NEGATIVE NEGATIVE Urine Urobilinogen 0.2 < = 1.0 MG/DL Urine Leukocyte Esterase NEGATIVE NEGATIVE Urine RBC (Auto) NEGATIVE NEGATIVE Urine RBC RARE /HPF Urine WBC RARE /HPF Urine Squamous Epithelial Cells 5-10 /HPF Urine Crystals NONE /LPF Urine Bacteria TRACE /HPF Urine Casts NONE /LPF Urine Mucus NEGATIVE /LPF Urine Culture Indicated NO Urine Opiates Screen NEGATIVE NEGATIVE Urine Oxycodone Screen POSITIVE H NEGATIVE Urine Methadone Screen NEGATIVE NEGATIVE Urine Propoxyphene Screen NEGATIVE NEGATIVE Urine Barbiturates Screen NEGATIVE NEGATIVE Ur Tricyclic Antidepressants Screen POSITIVE H NEGATIVE Urine Phencyclidine Screen NEGATIVE NEGATIVE Urine Amphetamines Screen NEGATIVE NEGATIVE Urine Methamphetamines Screen NEGATIVE NEGATIVE Urine Benzodiazepines Screen NEGATIVE NEGATIVE Urine Cocaine Screen NEGATIVE NEGATIVE Urine Cannabinoids Screen NEGATIVE NEGATIVE My Orders Orders - IVAN MORALES Continuous Ekg Monitoring (07/20/20 09:18) Ekg Tracing (07/20/20 09:18) Cbc With Automated Diff (07/20/20 09:18) Comprehensive Metabolic Panel (07/20/20 09:18) Ua Culture If Indicated (07/20/20 09:18) Drug Screen Stat (Urine) (07/20/20 09:18) Urine Bedside (07/20/20 09:18) Lactated Ringers (Lr 1000 Ml Iv Solution (07/20/20 09:30) Prochlorperazine Injection (Compazine In (07/20/20 09:30) Diphenhydramine Injection (Benadryl Inje (07/20/20 09:30) Prochlorperazine Injection (Compazine In (07/20/20 09:30) Diphenhydramine Tablet (Benadryl Tablet) (07/20/20 09:30) Acetaminophen Tablet (Tylenol Tablet) (07/20/20 09:30) Ondansetron Injection (Zofran Injectio (07/20/20 10:00) Benztropine Injection (Cogentin Injectio (07/20/20 10:15) Medications Given in ED Current Medications Medications Dose Ordered Sig/Christel Route Start Time Stop Time Status Last Admin Dose Admin Acetaminophen 1,000 mg ONCE ONCE PO 07/20/20 09:30 07/20/20 09:31 DC 07/20/20 09:40 1,000 MG Benztropine Mesylate 2 mg ONCE ONCE IM 07/20/20 10:15 07/20/20 10:16 DC 07/20/20 10:23 2 MG Diphenhydramine HCl 25 mg ONCE ONCE PO 07/20/20 09:30 07/20/20 09:31 DC 07/20/20 09:40 25 MG Ondansetron HCl 8 mg ONCE ONCE IM 07/20/20 10:00 07/20/20 10:01 DC 07/20/20 09:57 8 MG Prochlorperazine Edisylate 10 mg ONCE ONCE IM 07/20/20 09:30 07/20/20 09:31 DC 07/20/20 09:41 10 MG Vital Signs/I&O 07/20/20 07/20/20 09:11 13:20 Temp 36.0 Pulse 128 120 Resp 18 18 B/P (MAP) 129/71 (90) 140/94 Pulse Ox 96 95 Progress Progress Note #1: Time: 09:30 Progress Note The patient appears to be having a panic attack has no postictal phase and is here for chief complaint of migraine after a vaccine. Plan to give her some Compazine, Tylenol and since we are not able to easily establish an IV will just check some labs and give IM shots. Benadryl p.o. we did some coaching on breathing exercises and this seemed to help slow her breathing as well as her heart rate down. Progress Note #2: Time: 10:25 Progress Note Patient's nausea has significantly improved. Her pain is still there but her headache is also improving. She is staring up at the ceiling but answers questions appropriately. Suspect may be she is having a dystonic reaction from the Compazine so we will give her some Cogentin. We will also get an ABG b ecause she was breathing so fast she may have became alkalotic from her panic attack. Progress Note #3: Time: 12:46 Progress Note Patient states she is feeling better and ready to go home. She is been up [place] to the bathroom. She is not had any nausea or vomiting since arriving. She has Phenergan at home. Initial ECG Impression Date: Jul 20, 2020 Initial ECG Impression Time: 09:15 Initial ECG Rate: 125 Initial ECG Rhythm: S.Tach Initial ECG Intervals: Normal Initial ECG Impression: Normal, Nonspecific Changes Initial ECG Comparisson: No Previous ECG Available Comment Sinus tachycardia without clinically relevant ST elevation or depression. Departure Impression Primary Impression: Migraine Qualified Codes: G43.009 - Migraine without aura, not intractable, without status migrainosus Additional Impression: Seizure-like activity Disposition: 01 HOME, SELF-CARE Condition: Stable Departure-Patient Inst. Decision time for Depature: 12:46 Referrals: NO,LOCAL PHYSICIAN (PCP/Family) Primary Care Physician Patient Instructions: Migraines (DC) Add. Discharge Instructions: Drink plenty fluids use Tylenol Motrin and establish care with a primary care provider. IVAN MORALES Jul 20, 2020 09:24
[2020-07-20] MEDS ORDERED: LACTATED RINGERS 1,000 ML IV ONE (09:30)
[2020-07-20] MEDS ORDERED: diphenhydrAMINE 50 MG/ML INJ (BENADRYL) IVP ONE (09:30)
[2020-07-20] MEDS ORDERED: PROCHLORPERAZINE 10 MG/2ML INJ (COMPAZINE) IV ONE (09:30)
[2020-07-20] MEDS ORDERED: diphenhydrAMINE 25 MG TAB (BENADRYL) PO ONE (09:30)
[2020-07-20] MEDS ORDERED: PROCHLORPERAZINE 10 MG/2ML INJ (COMPAZINE) IM ONE (09:30)
[2020-07-20] MEDS ORDERED: ACETAMINOPHEN 500 MG TAB (TYLENOL) PO ONE (09:30)
[2020-07-20 09:46] LABS: BASOPHILS % (AUTO) 0 % (0-10); EOSINOPHILS # (AUTO) 0.2 10^3/uL (0.0-0.3); EOSINOPHILS % (AUTO) 1 % (0-10); HEMATOCRIT 49 % (35-52); HEMOGLOBIN 15.5 g/dL (11.5-16.0); LYMPHOCYTES # (AUTO) 2.1 10^3/uL (1.0-4.0); LYMPHOCYTES % (AUTO) 19 % (12-44); MEAN CORPUSCULAR HEMOGLOBIN 26 pg (25-34); MEAN CORPUSCULAR HGB CONC 32 g/dL (32-36); MEAN CORPUSCULAR VOLUME 83 fL (80-99); MEAN PLATELET VOLUME 11.1 fL (9.0-12.2); MONOCYTES # (AUTO) 0.5 10^3/uL (0.0-1.0); MONOCYTES % (AUTO) 5 % (0-12); NEUTROPHILS # (AUTO) 8.2 10^3/uL (1.8-7.8); NEUTROPHILS % (AUTO) 74 % (42-75); PLATELET COUNT 268 10^3/uL (130-400); WHITE BLOOD COUNT 11.1 10^3/uL (4.3-11.0)
[2020-07-20] MEDS ORDERED: ONDANSETRON 4 MG/2 ML (SDV) Z0FRAN IM ONE (10:00)
[2020-07-20 10:06] LABS: ALBUMIN 4.1 GM/DL (3.2-4.5); CHLORIDE 98 MMOL/L (98-107); POTASSIUM 3.6 MMOL/L (3.6-5.0); SODIUM 139 MMOL/L (135-145)
[2020-07-20 10:08] LABS: CALCIUM 9.8 MG/DL (8.5-10.1)
[2020-07-20 10:09] LABS: GLUCOSE 177 MG/DL (70-105); TOTAL PROTEIN 8.3 GM/DL (6.4-8.2)
[2020-07-20 10:09] LABS: BILIRUBIN,URINE NEGATIVE (NEGATIVE); CLARITY,URINE CLEAR; COLOR,URINE YELLOW; GLUCOSE, URINE (UA) NEGATIVE (NEGATIVE); KETONES,URINE NEGATIVE (NEGATIVE); LEUKOCYTE ESTERASE ,URINE NEGATIVE (NEGATIVE); NITRITE,URINE NEGATIVE (NEGATIVE); PROTEIN,URINE 2+ (NEGATIVE)
[2020-07-20 10:10] LABS: CARBON DIOXIDE 25 MMOL/L (21-32)
[2020-07-20 10:11] LABS: BILIRUBIN,TOTAL 0.5 MG/DL (0.1-1.0)
[2020-07-20 10:12] LABS: ALKALINE PHOSPHATASE 137 U/L (40-136); CREATININE SERUM 0.81 MG/DL (0.60-1.30); GFR ESTIMATED > 60
[2020-07-20 10:14] LABS: BUN/CREATININE RATIO 14
[2020-07-20 10:15] LABS: ALANINE AMINOTRANSFERASE 37 U/L (0-55)
[2020-07-20] MEDS ORDERED: BENZTROPINE 2 MG/2 ML INJ (COGENTIN) AMP IM ONE (10:15)
[2020-07-20 10:18] LABS: BACTERIA,URINE TRACE /HPF; RBC,URINE RARE /HPF; WBC,URINE RARE /HPF
[2020-07-20 10:21] LABS: AMPHETAMINE SCREEN, URINE NEGATIVE (NEGATIVE); BARBITURATE SCREEN URINE NEGATIVE (NEGATIVE); BENZODIAZEPINES SCREEN URINE NEGATIVE (NEGATIVE); CANNABINOID SCREEN, URINE NEGATIVE (NEGATIVE); COCAINE SCREEN URINE NEGATIVE (NEGATIVE); METHADONE STAT NEGATIVE (NEGATIVE); METHAMPHETAMINE SCREEN URINE S NEGATIVE (NEGATIVE); OPIATE SCREEN URINE NEGATIVE (NEGATIVE); OXYCODONE STAT POSITIVE (NEGATIVE); PROPOXYPHENE STAT NEGATIVE (NEGATIVE); TRICYCLIC ANTIDEPRESSANTS SCRE POSITIVE (NEGATIVE)
[2020-07-20 13:20] VITALS: BP 140/94
== END 2020-07-20 13:20 | disposition home or self-care (01) ==
LOC: EDUNIT# 09:09 → ER 09:10
DX: G43.909 Migraine, unspecified, not intractable, without status migrainosus (principal); R29.818 Other symptoms and signs involving the nervous system; E78.00 Pure hypercholesterolemia, unspecified; I10 Essential (primary) hypertension; G89.29 Other chronic pain; M54.9 Dorsalgia, unspecified; E11.9 Type 2 diabetes mellitus without complications; E66.01 Morbid (severe) obesity due to excess calories; Z68.43 Body mass index [BMI] 50.0-59.9, adult; Z88.2 Allergy status to sulfonamides; Z88.1 Allergy status to other antibiotic agents; Z88.6 Allergy status to analgesic agent; Z88.8 Allergy status to other drugs, medicaments and biological substances; Z79.891 Long term (current) use of opiate analgesic; Z79.4 Long term (current) use of insulin
CPT/HCPCS: 36415; 80053; 80306; 81000; 84703; 85025; 93005

== ENCOUNTER 2020-07-29 00:52 | Emergency (ER) | payer MEDICAID ==
[~2020-07-29] VITALS: Ht 165.1 cm; Wt 146.5 kg
[2020-07-29] MEDS ORDERED: cefTRIAXone FOR IV USE 1,000 MG in WATER (STERILE) FOR INJECTION 10 ML IV ONE (01:30)
[2020-07-29] MEDS ORDERED: AMOX-358 PO (01:36)
[2020-07-29] MEDS ORDERED: BENZ-13 PO (01:38)
--- NOTE | 2020-07-29 01:38 | ED Respiratory ---
General Chief Complaint: Chest Pain Stated Complaint: SEIZURE,CP,SOB Source: patient Exam Limitations: no limitations History of Present Illness Date Seen by Provider: Jul 29, 2020 Time Seen by Provider: 01:21 Initial Comments Patient presents the ER by private conveyance from home with chief complaint that she had seen her primary care doctor and they increased her trazodone from 25 to 50 mg twice daily for her seizures. She had three episodes of seizure ton ight over about half an hour and during her second one her significant other thought maybe she had vomited but there was no vomit on the bed. She was having a lot of coughing and is afraid now that maybe she aspirated some of it. She says usually she can get her to come out of her seizures by talking to her. There is no postictal phase noted. Patient has plans to follow-up with primary care in about 2 weeks and then get scheduled with a neurologist. No fevers or chills. No productive cough. No history of lung disease. Allergies and Home Medications Allergies Coded Allergies: Sulfa (Sulfonamide Antibiotics) (Verified Allergy, Unknown, 07/04/20) ciprofloxacin (Verified Allergy, Unknown, 07/04/20) divalproex sodium (Verified Allergy, Unknown, 07/04/20) dulaglutide (Verified Allergy, Unknown, 07/04/20) elagolix (Verified Allergy, Unknown, 07/04/20) ibuprofen (Verified Allergy, Unknown, 07/04/20) ketorolac (Verified Allergy, Unknown, 07/04/20) progesterone (Verified Allergy, Unknown, 07/04/20) Home Medications Amoxicillin/Potassium Clav 1 Each Tablet, 1 EACH PO BID Prescribed by: IVAN MORALES on 07/29/20 013 Atorvastatin Calcium 10 Mg Tablet, 10 MG PO HS, (Reported) Benzonatate 100 Mg Capsule, 100 MG PO Q6H PRN for COUGH Prescribed by: IAVN MORALES on 07/29/20 0138 Cefdinir 300 Mg Capsule, 300 MG PO BID Prescribed by: NETTE HESTER on 07/04/20 0409 Insulin Aspart 100 Unit/1 Ml Susp, 15 UNIT SQ AC, (Reported) Insulin Determir 1,000 Units/10 Ml Soln, 50 UNITS SQ HS, (Reported) Lisinopril 10 Mg Tablet, 10 MG PO DAILY, (Reported) Ondansetron 8 Mg Tab.rapdis, 8 MG PO Q6H Prescribed by: NETTE HESTER on 07/04/20 0409 Oxycodone HCl/Acetaminophen 1 Each Tablet, 1 TAB PO Q8H PRN for PAIN-MODERATE, (Reported) Phenazopyridine HCl 200 Mg Tablet, 1 TAB PO TID Prescribed by: NETTE HESTER on 07/04/20 0409 Promethazine HCl 25 Mg Tablet, 25 MG PO TID PRN for NAUSEA/VOMITING Prescribed by: GEOVANI DURAN on 07/11/20 1333 Patient Home Medication List Home Medication List Reviewed: Yes Review of Systems Review of Systems Constitutional: No chills, No diaphoresis EENTM: No ear discharge, No ear pain Respiratory: cough; No phlegm, No short of breath Cardiovascular: No chest pain, No palpitations Gastrointestinal: No abdominal pain, No nausea; vomiting Genitourinary: No discharge, No dysuria Musculoskeletal: No back pain, No joint pain Psychiatric/Neurological: See HPI All Other Systems Reviewed Negative Unless Noted: Yes Past Uezwudx-Rosyaf-Lzxpgc Hx Patient Social History Alcohol Use: Denies Use Drug of Choice: DENIES 2nd Hand Smoke Exposure: No Recent Hopitalizations: No Immunizations Up To Date Date of Influenza Vaccine: Jan 21, 2020 Seasonal Allergies Seasonal Allergies: No Past Medical History Surgeries: Yes (RECONSTRUCTION ON L RING FINGER, CARPAL TUNNEL, BEGNIGN TUMOR R LEG ) Gallbladder, Hysterectomy, Orthopedic, Tonsillectomy Respiratory: Yes (COVID-19 INFECTION 11/2019--NO HOSPITALIZATION) Cardiac: Yes High Cholesterol, Hypertension Neurological: Yes Headaches /Migraines, Seizure Disorder Reproductive Disorders: Yes Female Reproductive Disorders: Endometriosis, Ovarian Cyst, Polycystic Ovarian Dis 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 oz. kg; 53.00 BMI Method: General Appearance: no apparent distress, obese Eyes: Bilateral Eye Normal Inspection, Bilateral Eye PERRL, Bilateral Eye EOMI HEENT: PERRL/EOMI, pharynx normal Neck: full range of motion, supple, normal inspection Respiratory: lungs clear, normal breath sounds, no respiratory distress, no accessory muscle use Cardiovascular: normal peripheral pulses, regular rate, rhythm Neurologic/Psychiatric: no motor/sensory deficits, alert, normal mood/affect, oriented x 3 Skin: normal color, warm/dry Progress/Results/Core Measures Suspected Sepsis SIRS Temperature: Pulse: Respiratory Rate: Blood Pressure / Mean: Results/Orders My Orders Orders - IVAN MORALES Ceftriaxone For Iv Use (Rocephin For I (07/29/20 01:30) Ekg Tracing (07/29/20 01:38) Medications Given in ED Current Medications Medications Dose Ordered Sig/Christel Route Start Time Stop Time Status Last Admin Dose Admin Ceftriaxone Sodium 1000 mg/ Sterile Water 10 ml @ 200 mls/hr ONCE ONCE IV 07/29/20 01:30 07/29/20 01:33 DC 07/29/20 01:46 200 MLS/HR Vital Signs/I&O 07/29/20 07/29/20 01:18 01:50 Temp 36.3 Pulse 126 99 Resp 18 18 B/P (MAP) 187/111 (136) 128/85 (136) Pulse Ox 97 95 O2 Delivery Room Air Room Air Capillary Refill : Less Than 3 Seconds Progress Note : Time: 01:33 Progress Note Rocephin 1 g IV x1. Lung sounds are clear vitals are aseptic. We will cover her with antibiotics for potential aspiration outpatient with Augmentin. Return precautions and follow-up in 3 to 4 days with primary care. ECG Initial ECG Impression Date: Jul 29, 2020 Initial ECG Impression Time: 01:11 Initial ECG Rate: 122 Initial ECG Rhythm: S.Tach Initial ECG Intervals: Normal Initial ECG Impression: Normal Comment Normal sinus tachycardia without clinically relevant ST changes. Departure Impression Primary Impression: Aspiration pneumonia Qualified Codes: J69.0 - Pneumonitis due to inhalation of food and vomit Disposition: HOME, SELF-CARE Condition: Stable Departure-Patient Inst. Decision time for Depature: 01:35 Referrals: NO,LOCAL PHYSICIAN (PCP/Family) Primary Care Physician Patient Instructions: Aspiration Pneumonia (DC) Add. Discharge Instructions: Vapor rubs, drink lots of fluids. Augmentin 1 tablet twice a day for the next 10 days. Follow-up with primary care in the next week. Return to the ER if not seeing significant improvement in 3 to 4 days or you are having shortness of breath or other worrisome symptoms. All discharge instructions reviewed with patient and/or family. Voiced understanding. Scripts Benzonatate (Tessalon Perle) 100 Mg Capsule 100 MG PO Q6H PRN for COUGH, #30 CAP 0 Refills Prov: IVAN MORALES 07/29/20 Amoxicillin/Potassium Clav (Augmentin 875-125 Tablet) 1 Each Tablet 1 EACH PO BID for 10 Days, #20 TAB 0 Refills Prov: IVAN MORALES 07/29/20 Copy Copies To 1: KADIE NICHOLE DO IVAN MORALES Jul 29, 2020 01:38
[2020-07-29 01:50] VITALS: BP 128/85
== END 2020-07-29 01:52 | disposition home or self-care (01) ==
LOC: EDUNIT# 00:52 → ER 00:56
DX: J69.0 Pneumonitis due to inhalation of food and vomit (principal); E66.01 Morbid (severe) obesity due to excess calories; E78.00 Pure hypercholesterolemia, unspecified; I10 Essential (primary) hypertension; E11.9 Type 2 diabetes mellitus without complications; G89.29 Other chronic pain; M54.9 Dorsalgia, unspecified; G40.909 Epilepsy, unspecified, not intractable, without status epilepticus; Z68.43 Body mass index [BMI] 50.0-59.9, adult; Z88.2 Allergy status to sulfonamides; Z88.1 Allergy status to other antibiotic agents; Z88.6 Allergy status to analgesic agent; Z88.8 Allergy status to other drugs, medicaments and biological substances; Z79.4 Long term (current) use of insulin; Z79.899 Other long term (current) drug therapy; Z79.891 Long term (current) use of opiate analgesic
CPT/HCPCS: 84703; 93005